=== PATIENT | female | born 1950 | race Caucasian/White ===

== ENCOUNTER → 2016-07-22 | Outpatient (CLI) | payer BC ==
--- NOTE | 2016-07-22 11:08 | ECHOS ---
DATE OF SERVICE: 07/22/2016 AGE: 65Y SEX: F HT: 65 WT: 190 lbs. Protocol [place]: X Others: Stress Echo Stage: II Dur. of Exercise: 5 minutes *Heart Rate Blood Pressure *Rest: 73 Rest: 124/69 * *Max. Achieved: 130 Maximum BP: 186/60 85% PMHR: 133 100% PMHR: 157 *METS: 6 INDICATIONS: Chest pain. MEDICATIONS: Baseline EKG shows sinus rhythm, normal axis, normal intervals. Patient exercised on [place] protocol for a total of 5 minutes achieving 6 METs, 83% of predicted maximal heart rate without chest pain. The patient had occasional PVCs both at rest and during exercise and there was nondiagnostic ST segment depression noted. Baseline echo shows normal left ventricular size, mild LV dysfunction with an ejection fraction of 45% with mild mid anterior wall hypokinesis. Postexercise, I do not see any exercise-induced wall motion abnormalities and the hypokinetic segment remains hypokinetic. CONCLUSION: 1. Poor exercise tolerance. 2. Ventricular ectopy at rest and during exercise. 3. Nondiagnostic EKG changes. 4. Abnormal stress echocardiogram with resting wall motion abnormality as described above.
== END | disposition home or self-care (01) ==
LOC: RADNMMAIN 09:43
PROVIDERS: ATTEND Family Medicine
DX: R94.39 Abnormal result of other cardiovascular function study (principal); R07.9 Chest pain, unspecified
CPT/HCPCS: 93017; 93350

== ENCOUNTER → 2017-09-30 | Outpatient (CLI) | payer MEDICARE ==
--- NOTE | 2017-09-30 11:18 | ECHOF ---
Referral Reason:Angina I20.9 MEASUREMENTS -------- HEIGHT: 165.1 cm WEIGHT: 77.1 kg BP: RVIDd: 2.7 cm (< 3.3) IVSd: 1.3 cm (0.6 - 1.1) LVIDd: 4.0 cm (3.9 - 5.3) LVPWd: 1.1 cm (0.6 - 1.1) IVSs: 1.5 cm LVIDs: 2.9 cm LVPWs: 1.5 cm LA Diam: 3.8 cm (2.7 - 3.8) Ao Diam: 3.5 cm (2.0 - 3.7) AV Cusp: 2.1 cm (1.5 - 2.6) LA Diam: 3.9 cm (2.7 - 3.8) MV EXCURSION: 15.965 mm (> 18.000) MV EF SLOPE: 87 mm/s (70 - 150) EPSS: 0.3 cm MV E Alvin: 0.84 m/s MV DecT: 239 ms MV A Alvin: 0.90 m/s MV E/A Ratio: 0.93 RAP: 5.00 mmHg RVSP: 30.70 mmHg FINDINGS -------- Sinus rhythm. This was a technically good study. The left ventricular size is normal. There is borderline concentric left ventricular hypertrophy. Overall left ventricular systolic function is low-normal with, an EF between 50 - 55 %. The right ventricle is normal in size. The left atrial size is normal. The right atrial size is normal. The aortic valve is trileaflet, and appears structurally normal. No aortic stenosis or regurgitation. Mild mitral annular calcification present. Mild mitral regurgitation is present. Mild tricuspid regurgitation present. There is no evidence of pulmonary hypertension. The right v entricular systolic pressure, as measured by Doppler, is 30.70mmHg. There is no pulmonic regurgitation present. The aortic root size is normal. There is no pericardial effusion. CONCLUSIONS -------- 1. The left ventricular size is normal. 2. There is borderline concentric left ventricular hypertrophy. 3. Overall left ventricular systolic function is low-normal with, an EF between 50 - 55 %. 4. The aortic valve is trileaflet, and appears structurally normal. No aortic stenosis or regurgitati on. 5. Mild mitral annular calcification present. 6. Mild mitral regurgitation is present. 7. Mild tricuspid regurgitation present. 8. There is no evidence of pulmonary hypertension. 9. The right ventricular systolic pressure, as measured by Doppler, is 30.70mmHg. 10. There is no pulmonic regurgitation present. 11. The aortic root size is normal. 12. There is no pericardial effusion. CUP TRIMMING MACHINE OPERATOR: Snehal Ochoa RDCS
--- NOTE | 2017-09-30 11:36 | P.STRESS ---
- Stress Test Note Stress Test Results/Findings: Exam Performed: Exam Date: Reason for Exam: Height: 0 in Weight: 0 g Protocol: Stage: Duration of Exercise: Resting Heart Rate: Resting Blood Pressure: Maximum Achieved Heart Rate: Maximum Achieved Blood Pressure: 85% PMHR: 100% PMHR: METS: Technologist Comment: Stress Test Results/Findings: Baseline heart rate 65 beats a minute Baseline blood pressure 119/70 mmHg Patient exercised on a [place] protocol for 7 minutes achieving a peak heart rate of 128 beats a minute. Normal blood pressure response to exercise. She complained of shortness of breath with exercise There was no ECG evidence for ischemia No arrhythmias noted Baseline 2-D echo images were normal without any segmental wall motion abnormalities At peak exercise there was excellent augmentation of overall LV contractility without development of any wall motion abnormalities @Recovery regional global LV systolic function remained normal Impression No ECG or echocardiographic evidence for ischemia Average exercise capacity
--- NOTE | 2017-10-04 14:14 | ECHOS ---
- Stress Test Note Stress Test Results/Findings: Exam Performed: Stress Echo Exam Date: 09/30/17 Reason for Exam: Chest Pain Height: 65 in Weight: 170 lbs Protocol: [place] Stage: 3 Duration of Exercise: 7:00 Resting Heart Rate: 65 Resting Blood Pressure: 119/70 Maximum Achieved Heart Rate: 128 Maximum Achieved Blood Pressure: 175/79 85% PMHR: 133 100% PMHR: 156 METS: 7.7 Technologist Comment: Stress Test Results/Findings: Baseline heart rate 65 beats a minute Baseline blood pressure 119/70 mmHg Patient exercised on a [place] protocol for 7 minutes achieving a peak heart rate of 128 beats a minute. Normal blood pressure response to exercise. She complained of shortness of breath with exercise There was no ECG evidence for ischemia No arrhythmias noted Baseline 2-D echo images were normal without any segmental wall motion abnormalities At peak exercise there was excellent augmentation of overall LV contractility without development of any wall motion abnormalities @Recovery regional global LV systolic function remained normal Impression No ECG or echocardiographic evidence for ischemia Average exercise capacity MTDD
== END ==
LOC: RADNMMAIN 09:28
PROVIDERS: ATTEND Family Medicine
DX: I08.1 Rheumatic disorders of both mitral and tricuspid valves (principal); I20.9 Angina pectoris, unspecified
CPT/HCPCS: 93306; 93351

== ENCOUNTER → 2017-11-11 | Outpatient (CLI) | payer MEDICARE | END | disposition home or self-care (01) | LOC: CPPFTMAIN 12:31 | PROVIDERS: ATTEND Family Medicine | DX: J68.3 Other acute and subacute respiratory conditions due to chemicals, gases, fumes and vapors (principal) | CPT/HCPCS: 94060; 94726; 94729 ==

== ENCOUNTER → 2018-01-20 | Outpatient (CLI) | payer MEDICARE ==
--- NOTE | 2018-01-20 12:45 | XR ---
EXAMINATION TYPE: XR chest 2V DATE OF EXAM: 01/20/2018 COMPARISON: Prior chest x-ray 08/02/2011 HISTORY: Cough and shortness of breath TECHNIQUE: Frontal and lateral views of the chest are obtained. FINDINGS: There is no focal air space opacity, pleural effusion, or pneumothorax seen. The cardiac silhouette size is within normal limits. There is a spinal curvature. The osseous structures are int act. IMPRESSION: No acute cardiopulmonary process.
== END | disposition home or self-care (01) ==
LOC: RADXRMAIN 10:55
PROVIDERS: ATTEND Family Medicine
DX: R05 Cough (principal); R06.02 Shortness of breath
CPT/HCPCS: 71046

== ENCOUNTER → 2018-09-12 | Outpatient (CLI) | payer MEDICARE ==
--- NOTE | 2018-09-12 15:04 | US ---
EXAMINATION TYPE: US kidneys/renal and bladder DATE OF EXAM: 09/12/2018 COMPARISON: NONE CLINICAL HISTORY: N39.0 Urinary tract infection site not specified. Urinary tract infection. EXAM MEASUREMENTS: Right Kidney: 9.9 x 5.6 x 4.1 cm Left Kidney: 10.5 x 5.4 x 6.1 cm Post Void Residual Volume: Not performed Right Kidney: Echogenic focus with shadowing seen medially measurin.9 x 1.8 x 1.3 cm. Minimal rig ht-sided hydronephrosis Left Kidney: Triangular shape. Echogenic focus with shadowing seen inferiorly measurin.8 x 0.7 x 0.5 cm. Bladder: Appears anechoic. Bilateral Jets seen: Yes No suspicious renal mass is seen. Cortical medullary differentiation is maintained. Bilateral urinary bladder jets are seen. Urinary bladder is anechoic. IMPRESSION: Minimal right hydronephrosis and 1.9 cm right renal calculus near the renal pelvis. Nonobstructing le ft renal calculus is also noted.
== END | disposition home or self-care (01) ==
LOC: RADUSWWP 14:15
PROVIDERS: ATTEND Family Medicine
DX: N13.2 Hydronephrosis with renal and ureteral calculous obstruction (principal)
CPT/HCPCS: 76770

== ENCOUNTER → 2018-10-12 | Outpatient (CLI) | payer MEDICARE ==
--- NOTE | 2018-10-12 15:50 | XR ---
Abdomen HISTORY: Calculus of kidney Frontal view of the abdomen submitted on 2 images No comparisons There is a calcification in the right upper quadrant at the T12-L1 interspace level, paraspinal locat ion measuring approximately 19 mm. Calcifications are noted in the pelvis which may represent phlebol iths on the left. Degenerative disc changes visualized spine. Retained fecal be present throughout th e distribution of the colon. Lung bases are clear. No pneumoperitoneum or bowel obstruction. 2 to 3 m m calcification present in the left paraspinal location may be within the left kidney. IMPRESSION: Calcification right upper quadrant may be within the right kidney or renal pelvis. Possib le left-sided nephrolithiasis.
== END | disposition home or self-care (01) ==
LOC: RADXRMAIN 12:31
PROVIDERS: ATTEND Urology
DX: N20.0 Calculus of kidney (principal)
CPT/HCPCS: 74018

== ENCOUNTER → 2018-10-25 | Outpatient (CLI) | payer MEDICARE ==
[2018-10-25 10:44] LABS: Basophils # (A) 0.1 k/uL (0-0.2); Basophils % (A) 1 %; Eosinophils # (A) 0.4 k/uL (0-0.7); Eosinophils % (A) 10 %; HCT 39.5 % (34.0-46.0); HGB 12.7 gm/dL (11.4-16.0); Lymphocytes # (A) 1.8 k/uL (1.0-4.8); Lymphocytes % (A) 43 %; MCH 30.9 pg (25.0-35.0); MCHC 32.1 g/dL (31.0-37.0); MCV 96.2 fL (80.0-100.0); Monocytes # (A) 0.2 k/uL (0-1.0); Monocytes % (A) 5 %; Neutrophils # (A) 1.6 k/uL (1.3-7.7); Neutrophils % (A) 36 %; Platelet Count 226 k/uL (150-450); RDW 12.3 % (11.5-15.5); WBC 4.3 k/uL (3.8-10.6)
[2018-10-25 11:00] LABS: Calcium 9.9 mg/dL (8.4-10.2); Potassium 4.7 mmol/L (3.5-5.1)
== END | disposition home or self-care (01) ==
LOC: LABPAT 09:12
PROVIDERS: ATTEND Urology
DX: Z01.812 Encounter for preprocedural laboratory examination (principal); Z01.810 Encounter for preprocedural cardiovascular examination; N20.1 Calculus of ureter; R31.1 Benign essential microscopic hematuria; Z79.899 Other long term (current) drug therapy; R53.83 Other fatigue
CPT/HCPCS: 80048; 85025; 87086; 93005

== ENCOUNTER → 2019-01-01 | Outpatient (CLI) | payer MEDICARE ==
--- NOTE | 2019-01-01 13:51 | XR ---
KUB HISTORY: N 20.0, R 93.4 Frontal KUB and 2 images correlated prior exam 11/07/2018 There is a gas-distended stomach present. Large amount of retained fecal debris present within the co demetrio. Overlying gas may obscure underlying detail. Degenerative disc changes are present in the visual ized lumbar spine. There is a slight levoscoliosis. Possible phleboliths in the left hemipelvis. 1 to 2 mm calcification suspected over the left kidney. IMPRESSION: Difficult to exclude nephrolithiasis. Correlate for fecal stasis. Distended stomach.
--- NOTE | 2019-01-01 17:43 | US ---
EXAMINATION TYPE: US kidneys/renal and bladder DATE OF EXAM: 01/01/2019 COMPARISON: 09/12/2018 CLINICAL HISTORY: 68-year-old female R93.4, N20.0. Pt states lithotripsy right side, F/U to previous TECHNIQUE: Multiple sonographic images of the kidneys and bladder are obtained. FINDINGS: EXAM MEASUREMENTS: Right Kidney: 9.9 x 3.6 x 4.7 cm Left Kidney: 9.6 x 4.7 x 4.1 cm Right Kidney: Appeared wnl Left Kidney: No evidence of hydro, lower pole calculus as seen on previous = 5mm in size Bladder: wnl Bilateral Jets seen: Yes There is no evidence for hydronephrosis at this point in time. No nephrolithiasis is seen. No jesus s are identified. The urinary bladder is anechoic. Bilateral ureteral jets are seen. IMPRESSION: 1. No hydronephrosis. The previously seen central calculus in the right kidney is no longer identifie d. 2. Stable 5 mm nonobstructive left renal calculus.
== END | disposition home or self-care (01) ==
LOC: RADUSWWP 12:37
PROVIDERS: ATTEND Urology
DX: N20.0 Calculus of kidney (principal); K31.89 Other diseases of stomach and duodenum
CPT/HCPCS: 74018; 76770

== ENCOUNTER → 2019-03-29 | Outpatient (CLI) | payer MEDICARE ==
--- NOTE | 2019-03-30 07:18 | BD ---
EXAMINATION TYPE: Axial Bone Density DATE OF EXAM: 03/29/2019 COMPARISON: 2016 CLINICAL HISTORY: Z 12.31 Height: 5 FT 4 1/2 Weight: 168 FRAX RISK QUESTIONS: Family History (Parent hip fracture): YES History of Fracture in Adulthood: YES Secondary Osteoporosis: RISK FACTORS HISTORY OF: Family History of Osteoporosis: YES Active: YES Postmenopausal woman: AGE 53 Take estrogen and/or progesterone medications: TOOK HRT FOR APPROX 5 YEARS NO LONGER TAKES MEDICATIONS: Thyroid Medications: YES Which medication: LEVOTHYROXINE How Long: FOR A VERY LONG TIME Additional Medications: Additional History: LEVOTHYROXINE, OXYBUTYNIN, PROPRANOLOL, MONTELUKAST, RAMÍREZ EXAM MEASUREMENTS: Bone mineral densitometry was performed using the [employer]. Bone mineral density as measured about the Lumbar spine is: ----- L1-L4(G/cm2): 1.058 T Score Values are as follows: ----- L2: -2.2 ----- L3: -1.3 ----- L4: 0.5 ----- L1-L4: -1.0 Bone mineral density has: INCREASED 11.4 % since study of: 2016 Bone mineral density about the R hip (g/cm2): 0.892 Bone mineral density about the L hip (g/cm2): 0.911 T Score values are as follows: -----R Neck: -1.1 -----L Neck: -0.9 -----R Total: -0.3 -----L Total: -0.6 Bone mineral density has: INCREASED 3.5 % since study of: 2016 IMPRESSION: Osteopenia (T Score between -2.5 and -1). There is slightly increased risk of fracture and the patient may be considered for treatment. Re-Screen 2-5 years. NOTE: T-SCORE=SD OF THE YOUNG ADULT MEAN.
--- NOTE | 2019-03-30 11:08 | MM ---
Reason for exam: screening (asymptomatic). Last mammogram was performed 3 years and 1 month ago. History: Patient is postmenopausal. Family history of breast cancer in maternal aunt at age 50. Took hormonal contraceptives for 3 years beginning at age 22. Took estrogen for 4 years 2 months. Physical Findings: A clinical breast exam by your physician is recommended on an annual basis and results should be correlated with mammographic findings. MG Screening Mammo w CAD Bilateral CC and MLO view(s) were taken. Prior study comparison: March 12, 2016, bilateral MG screening mammo w CAD. August 16, 2013, bilateral digital screening mammo w/CAD. There are scattered fibroglandular densities. No suspicious abnormality. No significant changes when compared with prior studies. ASSESSMENT: Negative, BI-RAD 1 RECOMMENDATION: Routine screening mammogram of both breasts in 1 year.
== END ==
LOC: RADMAMWWP 15:14
PROVIDERS: ATTEND Family Medicine
DX: Z12.31 Encounter for screening mammogram for malignant neoplasm of breast (principal); M85.80 Other specified disorders of bone density and structure, unspecified site
CPT/HCPCS: 77067; 77080

== ENCOUNTER → 2019-05-11 | Outpatient (CLI) | payer MEDICARE ==
--- NOTE | 2019-05-11 08:59 | US ---
EXAMINATION TYPE: US bladder DATE OF EXAM: 05/11/2019 COMPARISON: Ultrasound kidneys and bladder January 01, 2019 CLINICAL HISTORY: N20.0 Kidney stones, R10.83 Renal colic. Patient states sometimes she uses the bath room constantly and sometimes she can't go. Hx frequent UTI's. EXAM MEASUREMENTS: Post Void Residual Volume: 438.6 mL Patient tried to void x 2. Patient states she was only able to go a little. Color Doppler performed to assess ureteral jets. Bilateral Jets seen Normal Post Void Residual (less than 50ml): ABNORMAL Bladder is satisfactorily distended without intraluminal mass or wall thickening. Patient has signifi cant residual urine after 2 attempts of voiding, calculated volume of over 400 cc. IMPRESSION: Abnormal post void residual.
--- NOTE | 2019-05-11 09:26 | US ---
EXAMINATION TYPE: US abdomen complete DATE OF EXAM: 05/11/2019 COMPARISON: CLINICAL HISTORY: N20.0 Kidney stones, R10.83 Renal colic. Hx renal stones. Frequent UTI's. EXAM MEASUREMENTS: Liver Length: 15.4 cm Gallbladder Wall: 0.2 cm CBD: 0.6 cm Spleen: 8.5 cm Right Kidney: 9.6 x 5.1 x 3.8 cm Left Kidney: 9.8 x 4.4 x 4.9 cm Limited due to overlying bowel gas Pancreas: body and tail obscured by bowel gas Liver: wnl Gallbladder: wnl Evidence for sonographic Le's sign: neg CBD: wnl Spleen: wnl Right Kidney: medial anechoic lesion seen at hilum - 1.0 x 1.0 cm Left Kidney: Medial anechoic lesion seen at hilum - 1.1 x 1.5 cm Upper IVC: wnl Abd Aorta: Proximal and Mid portion obscured by overlying bowel gas. Renal lesions favor small simple thin-walled cysts. Some asymmetric cortical thinning right kidney no favio. The visualized liver is homogenous. The intrahepatic portion of the IVC and visualized abdominal aor ta are within normal limits. There is no evidence of cholelithiasis. Common bile duct is unremarkab le. The visualized portions of the pancreas are homogenous. The spleen is unremarkable. Kidneys ar e symmetric and free of hydronephrosis. No renal lesions are seen. IMPRESSION: No shadowing renal calculi or hydronephrosis seen bilaterally on current study
== END | disposition home or self-care (01) ==
LOC: RADUSWWP 07:59
PROVIDERS: ATTEND Family Medicine
DX: N20.0 Calculus of kidney (principal); R82.998 Other abnormal findings in urine
CPT/HCPCS: 76700; 76857

== ENCOUNTER → 2019-07-23 | Outpatient (CLI) | payer MEDICARE ==
--- NOTE | 2019-07-23 15:31 | CT ---
EXAMINATION TYPE: CT brain wo/w con DATE OF EXAM: 07/23/2019 COMPARISON: 10/21/2014 HISTORY: 68-year-old female with headache and dizziness TECHNIQUE: Examination was done in axial plane before and after administration of 100 mL Isovue 300 intravenous contrast. Coronal and sagittal reconstructions performed. CT DLP: 2131 mGycm Automated exposure control for dose reduction was used. FINDINGS: There is no evidence of acute intracranial hemorrhage, acute ischemic changes, mass, mass-effect, or extra-axial fluid collection. There is no effacement of cerebral sulci or basal subarachnoid cister ns. There is no hydrocephalus. There is no midline shift. Berg-white matter distinction is preserv ed. No enhancing intracranial lesions. Venous sinuses are patent. Rightward nasal septal deviation. Paranasal sinuses and mastoid air cells well pneumatized. Orbits an d globes are intact. IMPRESSION: No acute intracranial abnormality seen. No enhancing intracranial lesions.
== END | disposition home or self-care (01) ==
LOC: RADCTMAIN 13:12
PROVIDERS: ATTEND Family Medicine
DX: R51 Headache (principal)
CPT/HCPCS: 70470; Q9967

== ENCOUNTER → 2020-06-17 | Outpatient (CLI) | payer MEDICARE ==
--- NOTE | 2020-06-20 13:18 | MM ---
Reason for exam: screening (asymptomatic). Last mammogram was performed 1 year and 3 months ago. History: Patient is postmenopausal. Family history of breast cancer in maternal aunt at age 50. Took hormonal contraceptives for 3 years beginning at age 22. Took estrogen for 4 years 2 months. Physical Findings: A clinical breast exam by your physician is recommended on an annual basis and results should be correlated with mammographic findings. MG Screening Mammo w CAD Bilateral CC and MLO view(s) were taken. Prior study comparison: March 29, 2019, bilateral MG screening mammo w CAD. March 12, 2016, bilateral MG screening mammo w CAD. There are scattered fibroglandular densities. Focal asymmetry with irregular margins. This finding is changed when compared with previous exams. ASSESSMENT: Incomplete: need additional imaging evaluation, BI-RAD 0 RECOMMENDATION: Special view mammogram of the right breast. If lesion persists on supplemental views, image directed ultrasound is recommended. [facility] will attempt to contact patient to return for supplemental views and ultrasound if indicated.
== END | disposition home or self-care (01) ==
LOC: RADMAMWWP 14:44
PROVIDERS: ATTEND Family Medicine
DX: Z12.31 Encounter for screening mammogram for malignant neoplasm of breast (principal)
CPT/HCPCS: 77067

== ENCOUNTER → 2020-06-25 | Outpatient (CLI) | payer MEDICARE ==
--- NOTE | 2020-06-25 10:46 | MM ---
Reason for exam: additional evaluation requested from abnormal screening. Last mammogram was performed less than 1 month ago. History: Patient is postmenopausal. Family history of breast cancer in maternal aunt at age 50. Took hormonal contraceptives for 3 years beginning at age 22. Took estrogen for 4 years 2 months. Physical Findings: Nurse did not find any significant physical abnormalities on exam. MG Work Up Mamm w CAD RT Spot compression CC, spot compression MLO, and LM view(s) were taken of the right breast. Prior study comparison: June 17, 2020, bilateral MG screening mammo w CAD. March 29, 2019, bilateral MG screening mammo w CAD. There are scattered fibroglandular densities. The central focal asymmetry appears to disperse. Precautionary 6 month follow up given the appearance on the MLO screening. These results were verbally communicated with the patient and result sheet given to the patient on 06/25/20. ASSESSMENT: Probably benign, BI-RAD 3 RECOMMENDATION: Follow-up diagnostic mammogram of the right breast in 6 months.
== END | disposition home or self-care (01) ==
LOC: RADMAMWWP 09:33
PROVIDERS: ATTEND Family Medicine
DX: R92.8 Other abnormal and inconclusive findings on diagnostic imaging of breast (principal)
CPT/HCPCS: 77065

== ENCOUNTER → 2020-11-25 | Outpatient (CLI) | payer MEDICARE ==
--- NOTE | 2020-11-25 17:08 | XR ---
EXAMINATION TYPE: XR lumbosacral spine min 4V DATE OF EXAM: 11/25/2020 CLINICAL HISTORY: Lower back pain, extremity pain. No known injury. TECHNIQUE: Frontal, lateral, and oblique images of the lumbar spine are obtained. COMPARISON: None FINDINGS: There are 5 lumbar type vertebral bodies identified. There is levocurvature of the lumbar spine. There is multilevel facet arthropathy, worst at L4-L5 and L5-S1 on the right. No evidence of s pondylolysis or spondylolisthesis. Vertebral body heights are normal. Mild diffuse degenerative spurr ing of the endplates. A 8 mm ovoid calcification over the left renal shadow is seen. IMPRESSION: 1. Levocurvature of the lumbar spine. 2. Degenerative disc disease and facet arthropathy as above. 3. 8mm calcification overlying the left renal shadow likely nephrolithiasis.
[2020-11-25 19:40] LABS: Basophils # (A) 0.04 X 10*3/uL (0.00-0.10); Basophils % (A) 0.8 %; Eosinophils # (A) 0.32 X 10*3/uL (0.04-0.35); Eosinophils % (A) 6.6 %; HCT 37.6 % (37.2-46.3); HGB 12.4 g/dL (12.0-15.0); Lymphocytes # (A) 2.08 X 10*3/uL (0.90-5.00); Lymphocytes % (A) 43.2 %; MCV 97.2 fL (80.0-97.0); Mean Platelet Volume 10.8 fL (9.5-12.2); Monocytes # (A) 0.39 X 10*3/uL (0.20-1.00); Monocytes % (A) 8.1 %; Neutrophils # (A) 1.99 X 10*3/uL (1.80-7.70); Neutrophils % (A) 41.3 %; Platelet Count 245 X 10*3/uL (140-440); RBC 3.87 X 10*6/uL (4.10-5.20); RDW 12.1 % (11.5-14.5); WBC 4.82 X 10*3/uL (4.50-10.00)
[2020-11-25 20:59] LABS: Erythrocyte Sedimentation Rate 35 mm/Hr (0-30)
[2020-11-25 21:14] LABS: Cyclic Citrull Pep IgG Unit <0.5 U/mL; Cyclic Citrullinated Pep IgG NEGATIVE (NEGATIVE)
[2020-11-25 21:37] LABS: Protein, Total 6.9 g/dL (6.2-8.2)
[2020-11-25 21:46] LABS: African American GFR (CKD) 87.8 (60.0-200.0); Albumin/Globulin Ratio 1.38 (1.60-3.17); BUN/Creat Ratio 17.5 Ratio (12.00-20.00); C Reactive Protein 0.5 mg/dL (0.0-0.8); Calcium 9.3 mg/dL (8.7-10.3); Chol/HDL Ratio 3.17; Globulin 2.9 g/dL (1.6-3.3); Non-African American GFR(CKD) 75.8 (60.0-200.0); Potassium 4.1 mmol/L (3.5-5.5); Total Bilirubin 0.6 mg/dL (0.3-1.2); Total Protein 6.9 g/dL (6.2-8.2)
== END | disposition home or self-care (01) ==
LOC: LABWHC1 11:17
PROVIDERS: ATTEND Family Medicine
DX: M70.61 Trochanteric bursitis, right hip (principal); M51.37 Other intervertebral disc degeneration, lumbosacral region; M51.36 Other intervertebral disc degeneration, lumbar region; M46.96 Unspecified inflammatory spondylopathy, lumbar region; M46.97 Unspecified inflammatory spondylopathy, lumbosacral region; E78.5 Hyperlipidemia, unspecified; I10 Essential (primary) hypertension; E03.9 Hypothyroidism, unspecified; F90.9 Attention-deficit hyperactivity disorder, unspecified type
CPT/HCPCS: 36415; 72110; 80053; 80061; 82550; 82607; 84165; 84439; 84443; 84481; 84550; 85025; 85652; 86038; 86039; 86140; 86200; 86334; 86618

== ENCOUNTER → 2020-12-24 | Outpatient (CLI) | payer MEDICARE ==
--- NOTE | 2020-12-24 12:25 | MM ---
Reason for exam: follow-up at short interval from prior study. Last mammogram was performed 6 months ago. History: Patient is postmenopausal. Family history of breast cancer in maternal aunt at age 50. Took hormonal contraceptives for 3 years beginning at age 22. Took estrogen for 4 years 2 months. Physical Findings: Nurse did not find any significant physical abnormalities on exam. MG Diagnostic Mammo RT w CAD CC and MLO view(s) were taken of the right breast. Prior study comparison: June 25, 2020, right breast MG work up mamm w CAD RT. June 17, 2020, bilateral MG screening mammo w CAD. There are scattered fibroglandular densities. No significant new findings when compared with previous films. These results were verbally communicated with the patient and result sheet given to the patient on 12/24/20. ASSESSMENT: Benign, BI-RAD 2 RECOMMENDATION: Return to routine screening mammogram schedule for both breasts. Back on schedule.
== END | disposition home or self-care (01) ==
LOC: RADMAMWWP 09:36
PROVIDERS: ATTEND Family Medicine
DX: Z12.31 Encounter for screening mammogram for malignant neoplasm of breast (principal); Z80.3 Family history of malignant neoplasm of breast
CPT/HCPCS: 77065

== ENCOUNTER → 2021-05-11 | Outpatient (CLI) | payer MEDICARE ==
[2021-05-11 10:22] LABS: Basophils # (A) 0.1 k/uL (0-0.2); Basophils % (A) 1 %; Eosinophils # (A) 0.3 k/uL (0-0.7); Eosinophils % (A) 8 %; HCT 40.5 % (34.0-46.0); HGB 13.1 gm/dL (11.4-16.0); Lymphocytes # (A) 1.5 k/uL (1.0-4.8); Lymphocytes % (A) 40 %; MCH 32.8 pg (25.0-35.0); MCHC 32.3 g/dL (31.0-37.0); MCV 101.6 fL (80.0-100.0); Mean Platelet Volume 7.2; Monocytes # (A) 0.2 k/uL (0-1.0); Monocytes % (A) 6 %; Neutrophils # (A) 1.6 k/uL (1.3-7.7); Neutrophils % (A) 42 %; Platelet Count 232 k/uL (150-450); RBC 3.99 m/uL (3.80-5.40); WBC 3.8 k/uL (3.8-10.6)
[2021-05-11 10:47] LABS: Potassium 4.1 mmol/L (3.5-5.1)
== END | disposition home or self-care (01) ==
LOC: LABWHC1 09:38
PROVIDERS: ATTEND Obstetrics & Gynecology
DX: N81.4 Uterovaginal prolapse, unspecified (principal); N81.6 Rectocele; Z01.818 Encounter for other preprocedural examination
CPT/HCPCS: 36415; 80051; 82565; 82947; 84520; 85025; 87086; 93005

== ENCOUNTER 2021-05-19 07:59 | Day surgery (SDC) | payer MEDICARE ==
--- NOTE | 2021-05-07 09:58 | HP ---
HISTORY AND PHYSICAL REASON FOR ADMISSION: Surgery on Wednesday, May 19, 2021 HISTORY OF PRESENT ILLNESS: This is a 70-year-old female who presents with increasing perineal bulge from Dr. Mcgowan's office. He is menopausal, not taking hormone replacement therapy, denies vaginal bleeding. She is reporting increased pressure and bulge of the perineal body, having to splint digitally to thoroughly evacuate the rectum. She is wishing surgical repair. The option of pessary has been discussed in detail and declined. PAST MEDICAL HISTORY: Significant for allergic rhinitis, asthma, attention deficit disorder, and GERD, history of kidney stones and kidney infection, hyperlipidemia, hypertension, hypothyroidism. PAST SURGICAL HISTORY: History of biceps tendonitis repaired in the past, kidney stones removed. CURRENT MEDICATIONS: Baby aspirin daily, Kayli 180 mg extended tab daily, fish oil daily, levothyroxine 112 mcg daily, manganese gluconate once daily, Nitrostat 0.4 mg sublingually p.r.n., propranolol 60 mg daily, Solifenacin 5 mg tablet daily, 650 mg daily, Ventolin HFA 90 mcg aerosol inhaler 1-2 puffs every 6 hours as needed, vitamin B complex tab daily, vitamin D3 daily. ALLERGIES: INCLUDE NONSTEROIDAL MEDICATIONS, PENICILLIN, AND ROFECOXIB, NO REACTIONS LISTED. OBSTETRIC HISTORY: Significant for normal spontaneous vaginal deliveries x3, unremarkable. SOCIAL HISTORY: Social alcohol, no tobacco or drug use. Patient is single. EXAM: Patient is 5 foot 4.5 inches, 169 pounds, BMI 28, pulse 71, blood pressure 132/80. HEENT exam reveals no thyromegaly, good dentition, no lymphadenopathy. CHEST: Clear to auscultation in all patel anteriorly and posteriorly. CARDIAC exam reveals regular rate and rhythm with no murmur, click, or rub. BREASTS are bilaterally symmetric to inspection with no skin changes. No nipple discharge axillary adenopathy or discernible lesions or masses. ABDOMEN: Soft and nontender, active bowel sounds, no hepatosplenomegaly. External GENITALIA are normal for age, very mildly atrophic. There is a grade 3-4 uterine prolapse, a grade 4 cystocele, grade 3 rectocele. Pap smear is up to date and normal. RECTAL exam reveals good sphincter tone, no hemorrhoids, no rectal masses, FIT negative stool. No other lymphadenopathy is noted. The patient is alert and oriented x3 with good judgment and appropriate affect. IMPRESSION: Grade 3-4 uterine prolapse, grade 4 cystocele, grade 3 rectocele, wishing surgical palliation. PLAN: We will proceed with vaginal hysterectomy, possible bilateral salpingo-oophorectomy, anterior and posterior colporrhaphy. The risks, benefits, alternatives have all been discussed. Pessary use is declined. Risk of anesthesia, aspiration, nerve damage, or even have all been reviewed. The ACOG pamphlet on pelvic organ prolapse has been given to the patient and she has reviewed thoroughly. I believe she understands our discussion with no reservation. She does consent to oophorectomy only if the ovaries are abnormal to inspection. MMODL / IJN: [id number] /
[2021-05-12 14:29] VITALS: BMI 28.3
[~2021-05-19 07:59] MED LIST: DEXAMETHASONE SOD PHOSPHATE 4 MG/ML 1 ML VIAL IV ONE; HYDROmorphone 0.5 MG/0.5 ML SYRINGE IVP PRN; ONDANSETRON 4 MG/2 ML VIAL IVP ONE
[2021-05-19] MEDS: LACTATED RINGERS 1,000 ML IV SCH ×2 (09:03→17:07)
[2021-05-19] MEDS ORDERED: MIDAZOLAM 2 MG/2 ML VIAL IVP ONE (09:35)
[2021-05-19] MEDS ORDERED: fentaNYL (PF) 50 MCG/ML 2 ML AMP IVP ONE (09:37)
[2021-05-19] MEDS ORDERED: LIDOCAINE 1% INJ 10MG/ML (20 ML MDV) ONE (10:00)
[2021-05-19] MEDS ORDERED: GLYCOPYRROLATE 0.2 MG/ML 2 ML VIAL ONE (10:00)
[2021-05-19] MEDS ORDERED: NEOSTIGMINE 1 MG/ML 10 ML VIAL ONE (10:00)
[2021-05-19] MEDS ORDERED: ROCURONIUM 10 MG/ML (5 ML VIAL) IV ONE (10:00)
[2021-05-19] MEDS ORDERED: ONDANSETRON 4 MG/2 ML VIAL ONE (10:00)
[2021-05-19] MEDS ORDERED: PROPOFOL 10 MG/ML 20 ML VIAL IV ONE (10:00)
[2021-05-19] MEDS ORDERED: diphenhydrAMINE 50 MG/ML 1 ML VIAL ONE (10:00)
[2021-05-19] MEDS ORDERED: SUCCINYLCHOLINE CHLORIDE 100 MG/5 ML SYR IV ONE (10:00)
[2021-05-19] MEDS ORDERED: fentaNYL (PF) 50 MCG/ML 2 ML AMP ONE (10:00)
[2021-05-19] MEDS ORDERED: MORPHINE SULFATE (PF) 0.3 MG/0.3 ML SYR ONE (10:00)
--- NOTE | 2021-05-19 10:11 | P.ANPRN ---
Procedure Note - Anesthesia - Epidural/Spinal Spinal Time Out Performed: Yes Date of Procedure: 05/19/21 Procedure Start Time: 09:35 Procedure Stop Time: 09:41 Location of Patient: PreOp Indication: Acute Post-Operative Pain, Requested by Surgeon (cheryl) Sedation Type: Sedate with meaningful contact maintained Preparation: Sterile Prep Position: Sitting Catheter: None Needle Guage: 25 Narrative: L4-5 identified. sterile protocol. local. 25g spinal with introducer. +CSF No heme Fentanyl 25mcg and Duramorph 300mcg. Patient tolerated procedure well. Blood Aspirated: No Pain Paresthesia on Injection Noted: No Events: Uneventful and Well Tolerated
[2021-05-19] MEDS ORDERED: VASOPRESSIN 20 UNIT/ML 1 ML VIAL SQ ONE (10:22)
[2021-05-19] MEDS ORDERED: LACTATED RINGERS 1,000 ML IV ONE (10:35)
[2021-05-19] MEDS ORDERED: BACITRACIN ZINC 500 UNIT/GM OINT 28.4 GM TUBE TOPICAL ONE (10:41)
[2021-05-19] MEDS ORDERED: KETOROLAC 30 MG/ML 1 ML VIAL IVP PRN (11:45)
[2021-05-19] MEDS ORDERED: SIMETHICONE 80 MG CHEWABLE PO PRN (11:45)
[2021-05-19] MEDS ORDERED: ONDANSETRON 4 MG/2 ML VIAL IVP PRN (11:45)
[2021-05-19] MEDS ORDERED: ZOLPIDEM 5 MG TAB PO PRN (11:45)
[2021-05-19] MEDS ORDERED: METOCLOPRAMIDE 5 MG/ML 2 ML VIAL IVP PRN (11:45)
[2021-05-19] MEDS ORDERED: diphenhydrAMINE 50 MG/ML 1 ML VIAL IVP PRN (11:45)
--- NOTE | 2021-05-19 11:45 | P.OP ---
Date of Procedure: 05/19/21 Preoperative Diagnosis: Symptomatic uterine prolapse, cystocele and rectocele Postoperative Diagnosis: Same, normal-appearing atrophic ovaries bilaterally Procedure(s) Performed: Gen. hysterectomy, anterior and posterior colporrhaphy's Anesthesia: GETA Surgeon: Monie Ignacio [employer] Program Coordinator #1: Kimberli Fragoso Estimated Blood Loss (ml): 75 IV fluids (ml): 700 Urine output (ml): 250 Pathology: other (Cervix and uterus) Condition: stable Disposition: PACU Operative Findings: Normal-appearing, atrophic ovaries bilaterally Description of Procedure: Patient is brought to the [facility] and suite where a general anesthetic is administered without difficulty after administration of a spinal with Duramorph in the preoperative area. Antibiotics are given. The patient is placed in the dorsal lithotomy position. The cervix, vagina, perineal bodies and lower abdomen are all prepped and draped in the usual sterile fashion. The appropriate timeout is performed to assure proper patient and procedural identification. Weighted speculum was placed into the vagina. Bladder is drained for approximately 250 mL of clear yellow urine. Anterior lip of the cervix is grasped with a double-tooth tenaculum. Cervix is injected circumferentially with a dilute Pitressin solution. A [place] blade scalpel is used to incise the mucosa circumferentially with a V position at 6:00. Sponge rolled finger is used to sweep the mucosa from the underlying fascial plane. The peritoneum is entered at 6:00, suture tied with 2-0 Vicryl and held with a hemostat. The large billed speculum is then placed into the peritoneal cavity. Again, at all times the bladder swept well from the operative field to avoid bladder and/or ureteral injury. The right uterosacral ligament is identified, clamped cut and suture ligated. It is held with a hemostat. The same procedure is carried out contralaterally. Mucosa is swept from the operative field, uterine vasculature is identified. It is clamped cut and suture ligated. Please note that 0 Vicryl sutures used for the entire hysterectomy portion of the procedure. 2 additional pedicles are taken superior to the vessels. Peritoneum is entered at 12:00. The uterus is then "walked out" posteriorly. Stella clamps are used across the final pedicles and the cervix and uterus are removed and sent to pathology. These pedicles are tied with 0 Vicryl suture in a Karol stitch, flashed, and retied for excellent hemostasis. The ovaries are then visualized, they are high in the peritoneal cavity, appear atrophic and within normal limits, and therefore are left in situ per the patient's wishes. All pedicles are clean and dry. The peritoneum is then brought around in a pursestring fashion with the previously placed 2-0 Vicryl suture. The uterosacral cardinal ligaments are now brought across to incorporate the opposite ligament as well as vaginal mucosa. 2 additional [id number] sutures of 0 Vicryl are used to close the vaginal cough. The remaining superior portion is held with Allis clamps and the anterior colporrhaphy is started. The anterior mucosa is injected in the midline with the same dilute Pitressin solution to approximately 1.5 cm inferior to the urethra. Metzenbaum scissors are used to underlying this mucosa in the midline. The mucosa is opened and held laterally with Allis clamps. A sponge rolled finger is used to sweep the underlying fascial plane from the overlying mucosal edge. Razo catheter is placed. Urine is clear. 2-0 Vicryl sutures used in an interrupted fashion to bring the fascial edges together in the midline thereby reducing the cystocele. The redundant tissue was trimmed with Metzenbaum scissors and a 2-0 Vicryl sutures used in a running fashion to bring the mucosal edges together to close the defect. Hemostasis remained excellent. At this time a triangular portion of tissue is removed from the perineal body. The posterior vaginal mucosa is injected in the midline with the same dilute Pitressin solution. Metzenbaum scissors are used to undermine the mucosa and the mucosa is opened to the apex of the defect. The edges are held in a fanlike fashion with Allis clamps. A sponge rolled finger is used to sweep the fascial plane from the underlying mucosal tissue. 2-0 Vicryl is used in the midline again to bring the fascial edges together thereby completely reducing the rectocele. The redundant tissue was trimmed with Metzenbaum scissors, 2-0 Vicryl is used in a running locking fashion to close the posterior vaginal wall and the repair is completed and an episiotomy-like fashion. Deep rectal exam reveals no foreign bodies, no defects, no issues as the mucosa is firm and smooth. The vagina is packed with one-inch iodophor gauze. Razo catheter is again noted to be draining clear urine. Total estimate a blood loss 75 mL, fluid replacement 700 mL's. Patient is brought back to recovery room in very good condition with stable vital signs including blood pressure 104/53, pulse 61, 98% O2 saturation.
[2021-05-19] MEDS: SENNOSIDES-DOCUSATE SODIUM 1 EACH TAB PO SCH (21:30)
--- NOTE | 2021-05-20 07:19 | P.PN ---
Progress Note - Text Progress Note Date: 05/20/21 Ms. Wilkinson is a 70 -year-old female had a history of hysterectomy under general anesthesia, and spinal analgesia withFentanyl 25mcg and Duramorph 300mcg for postop pain. Today patient is comfortable sitting in her bed. Today patient rated her pain level 2 out of 10 in severity. Denied any fever, drowsiness, confusion. Denied any weakness, tingling sensation in her lower extremities. Denied any bowel or bladder problems. Moving all extremities without any difficulty. Able to walk without any difficulties. Patient complaining of nausea, itching overnight. Currently denied any itching. Vitals: Hemodynamically stable Continue oral pain medication as per primary team.
--- NOTE | 2021-05-20 08:13 | P.PN ---
Subjective Progress Note Date: 05/20/21 Principal diagnosis: Postoperative day #1 Nausea and emesis through the night. Better this morning. Still no meaningful by mouth intake. Patient feels she is likely still recovering from the anesthetic. Had significant issues previously with general anesthetic for biceps surgery. Negative flatus. No complaint of pain. Objective - Vital Signs Vital signs: Vital Signs Temp 97.9 F 05/19/21 23:49 Pulse 69 05/19/21 23:49 Resp 18 05/19/21 23:49 BP 116/72 05/19/21 23:49 Pulse Ox 100 05/19/21 23:49 Intake & Output 05/19/21 05/20/21 05/20/21 18:59 06:59 18:59 Intake Total 1450 Output Total 775 750 Balance 675 -750 Weight 78.4 kg Intake: IV 1450 Output: Urine 550 750 Uretheral (Razo) 750 Emesis 150 Estimated Blood Loss 75 - Constitutional General appearance: Present: average body habitus, cooperative - EENT Eyes: Present: PERRLA ENT: Present: hearing grossly normal - Neck Neck: Present: normal ROM - Respiratory Respiratory: bilateral: CTA - Cardiovascular Rhythm: regular - Gastrointestinal Gastrointestinal Comment(s): Abdomen soft, no pain, no rebound or guarding. No CVA tenderness. Bowel sounds present, but hypoactive. - Genitourinary Genitourinary Comment(s): Perineal body clean and dry. Razo catheter and vaginal packing removed. No vaginal bleeding. - Neurologic Neurologic: Present: CNII-XII intact - Musculoskeletal Musculoskeletal: Present: gait normal, strength equal bilaterally - Psychiatric Psychiatric: Present: A&O x's 3, appropriate affect, intact judgment & insight Assessment and Plan Assessment: Postoperative day #1. Residual nausea and emesis noted. Plan: Slow dietary advancement. May shower. Increase activity. Measure voided and postvoid residual. Await spontaneous passage of flatus. Possible discharge home later today, versus tomorrow, pending clinical progress. Time with Patient: Less than 30
[2021-05-20] MEDS: ACETAMINOPHEN TAB 325 MG TAB PO PRN ×2 (09:15→20:07)
[2021-05-20] MEDS: SENNOSIDES-DOCUSATE SODIUM 1 EACH TAB PO SCH ×2 (09:38→23:07)
[2021-05-20] MEDS: LACTATED RINGERS 1,000 ML IV SCH (12:13)
[2021-05-21] MEDS: ACETAMINOPHEN TAB 325 MG TAB PO PRN ×2 (04:01→09:55)
[2021-05-21 04:27] VITALS: BP 119/71; PULSE 79; RESP 18; TEMP 98
[2021-05-21] MEDS ORDERED: LEVOTHYROXINE 112 MCG TAB PO SCH (06:00)
[2021-05-21] MEDS ORDERED: PROPRANOLOL 20 MG TAB PO SCH (06:00)
--- NOTE | 2021-05-21 08:00 | P.DS ---
Providers Date of admission: 05/19/21 Expected date of discharge: 05/21/21 Attending physician: Monie Ignacio Primary care physician: [facility] Course: This is a 70-year-old white female who presented with increasingly symptomatic vaginal prolapse, cystocele and rectocele. She elected for surgical repair. She underwent anterior colporrhaphy, posterior colporrhaphy, and vaginal hysterectomy 2 days ago. Surgery was unremarkable, ovaries appeared within normal limits to inspection and therefore were left in situ per her wishes. Please see my dictated history and physical as well as operative notes for details. Razo catheter was removed yesterday morning, patient was able to void but still had large postvoid residuals. For that reason Razo catheter was reinserted through the night. It has been discontinued this morning. Vaginal packing is removed. There is no vaginal bleeding. Patient is passing flatus and tolerating regular food. She complains of no pain. Appetite is good. Voiding trial will recommence this morning. Plan is for discharge home later today. If post void residuals remain in the 500s. She will be instructed to self cath. She will use [id number] Advil or Aleve, or Motrin as needed for pain. I reminded her no intercourse, tampons or douching. No heavy lifting. No driving for 2 weeks. No vacuuming. She will call with any issues with urination, significant vaginal bleeding, with any pain not alleviated by [id number] products, or indeed with any concerns. Assessment: Postoperative day #2, Patient Condition at Discharge: Good Plan - Discharge Summary New Discharge Prescriptions: No Action Montelukast Sodium [Singulair] 10 mg PO HS Solifenacin Succinate 5 mg PO QAM Propranolol HCl 60 mg PO QAM Levothyroxine Sodium 112 mcg PO MOTUWETHFR Nitroglycerin Sl Tabs [Nitrostat] 0.4 mg SUBLINGUAL Q5M PRN PRN Reason: Chest Pain Fexofenadine HCl [Kayli Allergy] 180 mg PO HS Albuterol Inhaler [Ventolin Hfa Inhaler] 1 puff INHALATION DIRECTED PRN PRN Reason: Asthma Cholecalciferol [Vitamin D3 (125 Mcg = 5000 Iu)] 125 mcg PO DAILY Aspirin 81 mg PO DAILY Relief Factor 1 tab PO TID Levothyroxine Sodium 56 mcg PO SUSA Cyanocobalamin (Vitamin B-12) [Vitamin B12] 5,000 mcg PO ZHOU Cranberry Fruit Extract [Theracran] 650 mg PO HS Discharge Medication List Albuterol Inhaler [Ventolin Hfa Inhaler] 1 puff INHALATION DIRECTED PRN 05/12/21 [History] Aspirin 81 mg PO DAILY 05/12/21 [History] Cholecalciferol [Vitamin D3 (125 Mcg = 5000 Iu)] 125 mcg PO DAILY 05/12/21 [History] Cranberry Fruit Extract [Theracran] 650 mg PO HS 05/12/21 [History] Cyanocobalamin (Vitamin B-12) [Vitamin B12] 5,000 mcg PO ZHOU 05/12/21 [History] Fexofenadine HCl [Kayli Allergy] 180 mg PO HS 05/12/21 [History] Levothyroxine Sodium 56 mcg PO SUSA 05/12/21 [History] Levothyroxine Sodium 112 mcg PO MOTUWETHFR 05/12/21 [History] Montelukast Sodium [Singulair] 10 mg PO HS 05/12/21 [History] Nitroglycerin Sl Tabs [Nitrostat] 0.4 mg SUBLINGUAL Q5M PRN 05/12/21 [History] Propranolol HCl 60 mg PO QAM 05/12/21 [History] Relief Factor 1 tab PO TID 05/12/21 [History] Solifenacin Succinate 5 mg PO QAM 05/12/21 [History] Follow up Appointment(s)/Referral(s): Monie Ignacio MD [STAFF PHYSICIAN] - 2 Weeks Discharge Disposition: HOME SELF-CARE
[2021-05-21] MEDS: SENNOSIDES-DOCUSATE SODIUM 1 EACH TAB PO SCH ×2 (09:56→10:26)
== END 2021-05-21 11:50 | disposition home or self-care (01) ==
LOC: OR 07:59 → 4FBP 11:48 → OR 05-21 11:50
PROVIDERS: ATTEND Obstetrics & Gynecology
DX: N81.4 Uterovaginal prolapse, unspecified (principal); Z20.822 Contact with and (suspected) exposure to COVID-19
CPT/HCPCS: 57260; 86900; 86901; 88305; 86850; 87635; J2250; J1200; J1100; J2710; J2765; J0690; J2405; J2001; J2274; J3010; J0330; J2704

== ENCOUNTER → 2021-06-30 | Outpatient (CLI) | payer MEDICARE ==
--- NOTE | 2021-06-30 14:58 | XR ---
EXAMINATION TYPE: XR KUB DATE OF EXAM: 06/30/2021 COMPARISON: 01/01/2019 HISTORY: Left-sided renal calculus TECHNIQUE: One view abdominal series FINDINGS: The osseous structures are intact. The bowel gas pattern is nonspecific. There is a left upper quadr ant calcification measuring 8.7 mm. Diffuse osteopenia and degenerative change of the spine and arthr opathy of the hips. Prominent gastric air bubble. IMPRESSION: 1. 8.7 mm left upper quadrant calcification likely renal. 2. Prominent gastric bubble correlate for gastroparesis or gastric outlet obstruction. Similar findin gs were seen in 2019.
== END | disposition home or self-care (01) ==
LOC: RADXRMAIN 14:00
PROVIDERS: ATTEND Urology
DX: N20.0 Calculus of kidney (principal)
CPT/HCPCS: 74018

== ENCOUNTER → 2021-08-18 | Outpatient (CLI) | payer MEDICARE ==
--- NOTE | 2021-08-20 10:56 | MM ---
Reason for exam: screening (asymptomatic). Last mammogram was performed 8 months ago. History: Patient is postmenopausal. Family history of breast cancer in maternal aunt at age 50. Took hormonal contraceptives for 3 years beginning at age 22. Took estrogen for 4 years 2 months. Physical Findings: A clinical breast exam by your physician is recommended on an annual basis and results should be correlated with mammographic findings. MG 3D Screening Mammo W/Cad Bilateral CC and MLO view(s) were taken. Prior study comparison: December 24, 2020, right breast MG diagnostic mammo RT w CAD. June 25, 2020, right breast MG work up mamm w CAD RT. There are scattered fibroglandular densities. No significant changes when compared with prior studies. ASSESSMENT: Benign, BI-RAD 2 RECOMMENDATION: Routine screening mammogram of both breasts in 1 year.
== END | disposition home or self-care (01) ==
LOC: RADMAMWWP 13:18
PROVIDERS: ATTEND Family Medicine
DX: Z12.31 Encounter for screening mammogram for malignant neoplasm of breast (principal)
CPT/HCPCS: 77063; 77067

== ENCOUNTER → 2021-09-07 | Outpatient (CLI) | payer MEDICARE ==
[2021-09-07 18:34] LABS: Basophils # (A) 0.04 X 10*3/uL (0.00-0.10); Eosinophils # (A) 0.26 X 10*3/uL (0.04-0.35); Eosinophils % (A) 6.3 %; HCT 39.3 % (37.2-46.3); HGB 12.7 g/dL (12.0-15.0); Immature Grans, Automated 0.2 %; Lymphocytes # (A) 1.71 X 10*3/uL (0.90-5.00); Lymphocytes % (A) 41.4 %; MCH 31.9 pg (27.0-32.0); MCHC 32.3 g/dL (32.0-37.0); MCV 98.7 fL (80.0-97.0); Mean Platelet Volume 10.2 fL (9.5-12.2); Monocytes # (A) 0.33 X 10*3/uL (0.20-1.00); NRBC Per 100 WBC 0 /100 WBCS (0.0-0.0); Neutrophils # (A) 1.78 X 10*3/uL (1.80-7.70); Neutrophils % (A) 43.1 %; Platelet Count 185 X 10*3/uL (140-440); RBC 3.98 X 10*6/uL (4.10-5.20); RDW 12.1 % (11.5-14.5); WBC 4.13 X 10*3/uL (4.50-10.00)
[2021-09-08 01:12] LABS: African American GFR (CKD) 78.1 (60.0-200.0); BUN/Creat Ratio 18.62 Ratio (12.00-20.00); Blood Urea Nitrogen 16.4 mg/dL (9.0-27.0); Calcium 9.7 mg/dL (8.7-10.3); Carbon Dioxide 25.2 mmol/L (20.0-27.5); Non-African American GFR(CKD) 67.4 (60.0-200.0); Potassium 4.1 mmol/L (3.5-5.5)
== END | disposition home or self-care (01) ==
LOC: LABPAT 12:15
PROVIDERS: ATTEND Urology
DX: Z01.812 Encounter for preprocedural laboratory examination (principal); N20.0 Calculus of kidney
CPT/HCPCS: 80048; 85025

== ENCOUNTER 2021-09-17 05:53 | Day surgery (SDC) | payer MEDICARE ==
[2021-09-15 14:26] VITALS: BMI 28.3
--- NOTE | 2021-09-15 20:19 | P.GSHP ---
History of Present Illness H&P Date: 09/15/21 Chief Complaint: Chronic UTI The patient is a 70-year-old white female with a persistent group B strep UTI. Her symptoms include dysuria, urgency, and vague left flank discomfort. Her symptoms are improved when taking Keflex. She underwent right ureteroscopy with holmium laser lithotripsy in October 2018 to remove a 19 mm right renal pelvic calculus. The calculus was composed of carbonate apatite (50%) and calcium oxalate monohydrate (35%). KUB x-ray reveals a 9 mm left renal calculus, which may be secondarily infected given the persistent UTI. - Constitutional Constitutional: Denies chills, Denies fever - Cardiovascular Cardiovascular: Denies chest pain - Respiratory Respiratory: Denies dyspnea - Genitourinary (Female) Genitourinary: Denies dysuria, Denies hematuria Past Medical History Past Medical History: Asthma, GERD/Reflux, Hypertension, Osteoarthritis (OA), Thyroid Disorder Additional Past Medical History / Comment(s): "memory is starting to go", sinus problems, lightheaded sometimes, kidney stones, hip pain, bursitis History of Any Multi-Drug Resistant Organisms: None Reported Past Surgical History: Hysterectomy, Orthopedic Surgery Additional Past Surgical History / Comment(s): kidney stone surg., right bicep tendon cut Past Anesthesia/Blood Transfusion Reactions: Postoperative Nausea & Vomiting (PONV) Additional Past Anesthesia/Blood Transfusion Reaction / Comment(s): slow to wake up @times Smoking Status: Never smoker - Past Family History Mother Family Medical History: No Reported History Medications and Allergies Home Medications Medication Instructions Recorded Confirmed Type Albuterol Inhaler [Ventolin Hfa 1 puff INHALATION DIRECTED PRN 05/12/21 09/15/21 History Inhaler] Aspirin 81 mg PO DAILY 05/12/21 09/15/21 History Cholecalciferol [Vitamin D3 (125 125 mcg PO DAILY 05/12/21 09/15/21 History Mcg = 5000 Iu)] Cranberry Fruit Extract [Theracran] 650 mg PO HS 05/12/21 09/15/21 History Cyanocobalamin (Vitamin B-12) 5,000 mcg PO ZHOU 05/12/21 09/15/21 History [Vitamin B12] Fexofenadine HCl [Kayli Allergy] 180 mg PO HS 05/12/21 09/15/21 History Levothyroxine Sodium 56 mcg PO SUSA 05/12/21 09/15/21 History Levothyroxine Sodium 112 mcg PO MOTUWETHFR 05/12/21 09/15/21 History Montelukast Sodium [Singulair] 10 mg PO HS 05/12/21 09/15/21 History Nitroglycerin Sl Tabs [Nitrostat] 0.4 mg SUBLINGUAL Q5M PRN 05/12/21 09/15/21 History Propranolol HCl 60 mg PO QAM 05/12/21 09/15/21 History Relief Factor 1 tab PO BID 05/12/21 09/15/21 History Solifenacin Succinate 5 mg PO QAM 05/12/21 09/15/21 History Allergies Allergy/AdvReac Type Severity Reaction Status Date / Time NSAIDS (Non-Steroidal Allergy Unknown Verified 09/15/21 14:01 Anti-Inflamma Penicillins Allergy Rash/Hives Verified 09/15/21 14:01 morphine AdvReac Itching Verified 09/15/21 14:02 Surgical - Exam - General well developed, well nourished, no distress - Respiratory normal respiratory effort - Abdomen Abdomen: soft, non tender, no guarding, no rigid, no rebound - Psychiatric oriented to time, oriented to person, oriented to place, speech is normal, memory intact Assessment and Plan (1) Calculus of kidney Status: Acute Code(s): N20.0 - CALCULUS OF KIDNEY SNOMED Code(s): 68711503 Plan: Cystoscopy, left retrograde pyelogram, left ureteroscopy with Holmium laser lithotripsy and possible stone basketing, left ureteral stent insertion. The procedure then reviewed in detail with the patient. The rationale for the procedure is to remove a calculus which may be secondarily infected and the cause of her chronic infections. She is aware of potential risks, which include anesthesia, bleeding, infection, inability to successfully remove the calculus, ureteral injury, and persistent infection.
[2021-09-17] MEDS ORDERED: MIDAZOLAM 2 MG/2 ML VIAL IV PRN (06:19)
[2021-09-17] MEDS ORDERED: DEXAMETHASONE SOD PHOSPHATE 4 MG/ML 1 ML VIAL IV ONE (06:19)
[2021-09-17] MEDS ORDERED: LIDOCAINE 1% (10MG/ML) FOR IV START INTRADERMA PRN (06:19)
[2021-09-17] MEDS ORDERED: ONDANSETRON 4 MG/2 ML VIAL IVP ONE (06:19)
[2021-09-17] MEDS ORDERED: HYDROmorphone 0.5 MG/0.5 ML SYRINGE IVP PRN (06:19)
[2021-09-17] MEDS ORDERED: LACTATED RINGERS 1,000 ML IV SCH (06:19)
--- NOTE | 2021-09-17 06:23 | XR ---
EXAMINATION TYPE: XR KUB DATE OF EXAM: 09/17/2021 COMPARISON: 06/30/2021 HISTORY: Left renal calculus TECHNIQUE: 2 views supine FINDINGS: There is no sign of intestinal obstruction or pneumoperitoneum. Fecal pattern is normal. Ki dneys are obscured by fecal material. There is no evidence of abdominal mass. There is a mild lumbar levoscoliosis. IMPRESSION: Nonacute abdomen. Potential calculus obscured by gas and fecal material.
[2021-09-17] MEDS ORDERED: LACTATED RINGERS 1,000 ML IV ONE (06:44)
[2021-09-17] MEDS ORDERED: PROPOFOL 10 MG/ML 20 ML VIAL IV ONE (07:30)
[2021-09-17] MEDS ORDERED: LIDOCAINE 2% INJ 20 MG/ML (2 ML VIAL) ONE (07:30)
[2021-09-17] MEDS ORDERED: SUCCINYLCHOLINE CHLORIDE 100 MG/5 ML SYR IV ONE (07:30)
[2021-09-17] MEDS ORDERED: MIDAZOLAM 2 MG/2 ML VIAL ONE (07:30)
[2021-09-17] MEDS ORDERED: fentaNYL (PF) 50 MCG/ML 2 ML AMP ONE (07:30)
[2021-09-17] MEDS ORDERED: IOPAMIDOL-370 50ML BTL MISCELLANE ONE (07:35)
[2021-09-17 09:14] VITALS: RESP 16; TEMP 96.9
--- NOTE | 2021-09-17 09:14 | P.OP ---
Date of Procedure: 09/17/21 Preoperative Diagnosis: Left renal calculus Postoperative Diagnosis: Same Procedure(s) Performed: Cystoscopy, left retrograde pyelogram, left ureteroscopy with Holmium laser lithotripsy, left ureteral stent insertion Anesthesia: LEOLAA Surgeon: Dante Tillman Estimated Blood Loss (ml): 0 IV fluids (ml): 700 Pathology: none sent Condition: stable Disposition: PACU Indications for Procedure: The patient is a 70-year-old white female with a persistent group B strep UTI. Her symptoms include dysuria, urgency, and vague left flank discomfort. Her symptoms are improved when taking Keflex. She underwent right ureteroscopy with holmium laser lithotripsy in October 2018 to remove a 19 mm right renal pelvic calculus. The calculus was composed of carbonate apatite (50%) and calcium oxalate monohydrate (35%). KUB x-ray reveals a 9 mm left renal calculus, which may be secondarily infected given the persistent UTI. Operative Findings: Complete dusting of left renal pelvic calculus. Description of Procedure: The patient was taken to the operating room and placed in the dorsolithotomy position, with legs supported in Altaf stirrups. The external genitalia was prepped and draped sterilely. The 30 lens was used to introduce the 21-[place] cystoscopic sheath through the urethra and into the bladder under direct vision. The bladder was examined in its entirety. Both ureteral orifices were normal anatomic location and configuration, and clear urine effluxed from both. No tumors or foreign bodies were seen. Using a 10-[place] cone-tipped catheter, a left retrograde pyelogram was p erformed. The ureter appeared normal. The calculus was seen as an irregularity within the left renal pelvis. A 0.038 inch Glidewire was passed through the cystoscope. The ureteral orifice was cannulated, and the Glidewire was advanced up to the renal pelvis. The cystoscope was removed, and a 12-[place] ureteral access catheter obturator over the wire. This was removed, and the [employer] flexible ureteroscope was passed over the wire. However, it could not be passed through the ureteral orifice. Therefore, a 12/14-[place] ureteral access catheter was passed over the wire, up to the proximal ureter. The flexible ureteroscope was then passed through the ureteral access catheter sheath and advanced up to the left renal pelvis under direct vision. The calculus was identified within the renal pelvis. The 272 micron Holmium laser probe was passed through the ureteroscope, and lithotripsy was performed utilizing a dusting mode. The stone was dusted completely, leaving no residual calculus fragments exceeding the size of the laser fiber tip. The ureteroscope was withdrawn. Pullout ureteroscopy showed no evidence of ureteral injury. The Glidewire was passed up to the left renal pelvis. After removing the ureteral access catheter sheath, the Glidewire was backloaded into the cystoscope, which was passed into the bladder. A 24 cm, 6-[place] silicone double-J ureteral stent was placed over the wire. Proper stent positioning was verified fluoroscopically and endoscopically.. The bladder was emptied and the cystoscope removed. The patient tolerated the procedure well and was taken to the recovery room in stable condition. EVELYNE PASCUAL Report: Procedure Acuity: Elective Stone Size and Location: 9 mm, left renal pelvis Ureteral Dilation: No Ureteral Access Sheath Used: Yes Stone Sent for Analysis: No All Stones/Fragments Were Removed with a Basket: No Complications: No Preoperative Antibiotics Given: Yes Stent Placed: Yes If Stent Placed, Was String Left Attached: No If Stent Placed, When is it to be Removed: 1 week Discharge Medications: None
--- NOTE | 2021-09-17 09:29 | FL ---
EXAMINATION TYPE: FL urography retrograde DATE OF EXAM: 09/17/2021 COMPARISON: NONE HISTORY: Fluoroscopy time. Fluoroscopy was provided to the referring clinician.
[2021-09-17 10:13] VITALS: BP 156/85; PULSE 55
== END 2021-09-17 10:45 | disposition home or self-care (01) ==
LOC: OR 05:53
PROVIDERS: ATTEND Urology
DX: N20.0 Calculus of kidney (principal); I10 Essential (primary) hypertension; J45.909 Unspecified asthma, uncomplicated; K21.9 Gastro-esophageal reflux disease without esophagitis; M19.90 Unspecified osteoarthritis, unspecified site; Z79.82 Long term (current) use of aspirin; Z87.442 Personal history of urinary calculi; Z88.0 Allergy status to penicillin; Z88.5 Allergy status to narcotic agent; Z88.6 Allergy status to analgesic agent; E07.9 Disorder of thyroid, unspecified; Z86.73 Personal history of transient ischemic attack (TIA), and cerebral infarction without residual deficits; Z79.899 Other long term (current) drug therapy
CPT/HCPCS: 52356; 74420; 74018; C1758; C1894; C1769; J2250; J0690; J3010; J0330; J2704; Q9967; J2001

== ENCOUNTER → 2021-09-26 | Outpatient (CLI) | payer MEDICARE ==
[2021-09-26 22:50] LABS: Basophils # (A) 0.04 X 10*3/uL (0.00-0.10); Basophils % (A) 0.9 %; Eosinophils # (A) 0.26 X 10*3/uL (0.04-0.35); Eosinophils % (A) 5.8 %; HGB 11.9 g/dL (12.0-15.0); Immature Grans, Automated 0.2 %; Lymphocytes # (A) 1.88 X 10*3/uL (0.90-5.00); MCHC 33.1 g/dL (32.0-37.0); MCV 96.8 fL (80.0-97.0); Mean Platelet Volume 10.7 fL (9.5-12.2); Monocytes # (A) 0.39 X 10*3/uL (0.20-1.00); Monocytes % (A) 8.7 %; NRBC Per 100 WBC 0 /100 WBCS (0.0-0.0); Neutrophils % (A) 42.4 %; Platelet Count 204 X 10*3/uL (140-440); RBC 3.72 X 10*6/uL (4.10-5.20); RDW 11.9 % (11.5-14.5); WBC 4.48 X 10*3/uL (4.50-10.00)
[2021-09-26 23:16] LABS: Chol/HDL Ratio 3.49 Ratio; LDL Cholesterol,Calculated 122.5 mg/dL (0.0-131.0)
[2021-09-26 23:21] LABS: ALT 13 U/L (8-44); AST 20 U/L (13-35); African American GFR (CKD) 74.5 (60.0-200.0); Albumin 3.8 g/dL (3.8-4.9); Albumin/Globulin Ratio 1.25 (1.60-3.17); Alkaline Phosphatase 51 U/L (41-126); BUN/Creat Ratio 16.27 Ratio (12.00-20.00); Blood Urea Nitrogen 14.9 mg/dL (9.0-27.0); Calcium 9.3 mg/dL (8.7-10.3); Carbon Dioxide 23.8 mmol/L (20.0-27.5); Chloride 108 mmol/L (96-109); Globulin 3.1 g/dL (1.6-3.3); Glucose 93 mg/dL (70-110); Non-African American GFR(CKD) 64.3 (60.0-200.0); Potassium 3.9 mmol/L (3.5-5.5); Sodium 142 mmol/L (135-145); Total Protein 6.9 g/dL (6.2-8.2)
== END | disposition home or self-care (01) ==
LOC: LABWHC1 10:35
PROVIDERS: ATTEND Family Medicine
DX: N81.9 Female genital prolapse, unspecified (principal); R41.3 Other amnesia; E78.5 Hyperlipidemia, unspecified; E03.9 Hypothyroidism, unspecified
CPT/HCPCS: 36415; 80053; 80061; 82306; 82607; 84439; 84443; 85025

== ENCOUNTER → 2021-10-28 | Outpatient (CLI) | payer MEDICARE ==
--- NOTE | 2021-10-28 10:45 | XR ---
KUB HISTORY: Kidney stones Frontal KUB and 2 images correlated to prior exam dated 09/30/2021 There is a large amount of bowel gas, retained fecal debris possibly obscuring underlying detail. Navi cifications in the left hemipelvis are stable. Bone mineralization is unchanged. Lung bases are clear . IMPRESSION: Nonspecific findings. No significant interval change.
--- NOTE | 2021-10-28 12:54 | US ---
EXAMINATION TYPE: US kidneys/renal and bladder DATE OF EXAM: 10/28/2021 COMPARISON: Abdominal x-ray September 30, 2021 CLINICAL HISTORY: Kidney stones N20.0. hx of stones and kidney infections. EXAM MEASUREMENTS: Right Kidney: 9.2 x 3.2 x 3.6 cm Left Kidney: 10.6 x 5.2 x 3.9 cm Right Kidney: No hydronephrosis or masses seen Left Kidney: No hydronephrosis or masses seen Bladder: anechoic not fully distended. Bilateral Jets seen: Yes There is no evidence for hydronephrosis at this point in time. No shadowing nephrolithiasis is seen. No masses are identified on images saved. The urinary bladder is not greatly distended. Bilateral ureteral jets are seen. IMPRESSION: No hydronephrosis identified bilaterally. No definitive nephrolithiasis.
== END | disposition home or self-care (01) ==
LOC: RADUSWWP 09:38
PROVIDERS: ATTEND Urology
DX: N20.0 Calculus of kidney (principal)
CPT/HCPCS: 74018; 76770

== ENCOUNTER → 2022-02-16 | Outpatient (CLI) | payer MEDICARE ==
[2022-02-16 20:53] LABS: Anion Gap 11.7 mmol/L (10.00-18.00); Carbon Dioxide 26.3 mmol/L (20.0-27.5); Potassium 4.3 mmol/L (3.5-5.5)
== END | disposition home or self-care (01) ==
LOC: LABWHC1 11:33
PROVIDERS: ATTEND Urology
DX: N20.0 Calculus of kidney (principal)
CPT/HCPCS: 36415; 80051

== ENCOUNTER → 2022-09-23 | Outpatient (CLI) | payer MEDICARE ==
--- NOTE | 2022-09-23 17:58 | BD ---
EXAMINATION TYPE: Axial Bone Density DATE OF EXAM: 09/23/2022 CLINICAL HISTORY: 71 years old Female. ICD-10 CODE: N95.1 POSTMENOPAUSAL Height: 64 in Weight: 168 lbs FRAX RISK QUESTIONS: Family History (Parent hip fracture): father hip fx History of Fracture in Adulthood: rt foot age 52; lt foot age 51 RISK FACTORS HISTORY OF: Active: yes Diet low in dairy products/other sources of calcium: yes Postmenopausal woman: age 52; partial hysterectomy age 69 Take estrogen and/or progesterone medications: not now How lon years MEDICATIONS: Thyroid Medications: yes Which medication: Levothyroxine How Lon+ years Additional Medications: vit d, baby aspirin, bladder meds, propranolol, allergy meds, vit b 12, EXAM MEASUREMENTS: Bone mineral densitometry was performed using the [employer] System. Bone mineral density as measured about the Lumbar spine is: ----- L1-L4(G/cm2): 1.089 T Score Values are as follows: ----- L1: -1.5 ----- L2: -1.1 ----- L3: -1.0 ----- L4: 0.0 ----- L1-L4: -0.8 Z Score Values are as follows: ----- L1: -0.2 ----- L2: 0.2 ----- L3: 0.3 ----- L4: 1.3 ----- L1-L4: 0.5 Bone mineral density has: Increased 2.9% since study of: 03/29/2019 Bone mineral density about the R hip (g/cm2): 0.984 Bone mineral density about the L hip (g/cm2): 0.910 T Score values are as follows: -----R Neck: -1.0 -----L Neck: -1.1 -----R Total: -0.2 -----L Total: -0.8 Z Score values are as follows: -----R Neck: 0.4 -----L Neck: 0.4 -----R Total: 1.0 -----L Total: 0.4 Bone mineral density has: Decreased -0.2% since study of: 03/29/2019 FRAX%s: The graph provided illustrates a 21.7% chance for a major osteoporotic fx and a 3.0% chance f or the hips probability for fx in 10 years time. IMPRESSION: Osteopenia (T Score between -2.5 and -1). There is slightly increased risk of fracture and the patient may be considered for treatment. Re-Screen 2-5 years. NOTE: T-SCORE=SD OF THE YOUNG ADULT MEAN.
--- NOTE | 2022-09-24 19:28 | MM ---
Reason for Exam: Screening (asymptomatic). Last mammogram was performed 1 year(s) and 1 month(s) ago. Patient History: Menarche at age 14. First Full-Term at age 25. Hysterectomy at age 69. Postmenopausal. Estrogen for 4 years, 2 months. Hormonal Contraceptives, starting at age 22 for 3 years. Maternal aunt had breast cancer, age 50. Risk Values: Velia 5 year model risk: 1.5%. NCI Lifetime model risk: 4.8%. Prior Study Comparison: 06/25/2020 Right Diagnostic Mammogram, [facility]. 12/24/2020 Right Diagnostic Mammogram, [facility]. 08/18/2021 Bilateral Screening Mammogram, [facility]. Tissue Density: There are scattered fibroglandular densities. Findings: Analyzed By CAD. Central asymmetric density right cc view remains unchanged. There is no suspicious group of microcalcifications or new suspicious mass in either breast. Overall Assessment: Benign, BI-RAD 2 Management: Screening Mammogram of both breasts in 1 year. . Patient should continue monthly self-breast exams. A clinical breast exam by your physician is recommended on an annual basis. This exam should not preclude additional follow-up of suspicious palpable abnormalities. Note on Velia scores and lifetime risk: 1. A Velia score greater than 3% is considered moderate risk. If this is the case, consider specialist referral to assess eligibility for a risk reducing agent. 2. If overall lifetime risk for the development of breast cancer is 20% or higher, the patient may qualify for future screening with alternating mammogram and breast MRI. Electronically signed and approved by: Birgit Willingham M.D. Radiologist
== END | disposition home or self-care (01) ==
LOC: RADBDWWP 12:29
PROVIDERS: ATTEND Family Medicine
DX: Z12.31 Encounter for screening mammogram for malignant neoplasm of breast (principal); M81.0 Age-related osteoporosis without current pathological fracture; M85.89 Other specified disorders of bone density and structure, multiple sites; Z80.3 Family history of malignant neoplasm of breast; Z78.0 Asymptomatic menopausal state
CPT/HCPCS: 77063; 77067; 77080

== ENCOUNTER → 2022-10-04 | Outpatient (CLI) | payer MEDICARE ==
[2022-10-04 15:45] LABS: Basophils # (A) 0.07 X 10*3/uL (0.00-0.10); Basophils % (A) 1.7 %; Eosinophils # (A) 0.41 X 10*3/uL (0.04-0.35); Eosinophils % (A) 9.7 %; HCT 39.6 % (37.2-46.3); HGB 13.2 g/dL (12.0-15.0); Immature Grans, Automated 0.2 %; Lymphocytes # (A) 1.98 X 10*3/uL (0.90-5.00); Lymphocytes % (A) 46.9 %; MCH 32.7 pg (27.0-32.0); MCHC 33.3 g/dL (32.0-37.0); Mean Platelet Volume 10.4 fL (9.5-12.2); Monocytes # (A) 0.31 X 10*3/uL (0.20-1.00); Monocytes % (A) 7.3 %; NRBC Per 100 WBC 0 /100 WBCS (0.0-0.0); Neutrophils # (A) 1.44 X 10*3/uL (1.80-7.70); Neutrophils % (A) 34.2 %; Platelet Count 231 X 10*3/uL (140-440); RBC 4.04 X 10*6/uL (4.10-5.20); RDW 12.1 % (11.5-14.5); WBC 4.22 X 10*3/uL (4.50-10.00)
[2022-10-04 16:20] LABS: ALT 16 U/L (8-44); AST 20 U/L (13-35); African American GFR (CKD) 75.1 (60.0-200.0); Albumin 4.1 g/dL (3.8-4.9); Albumin/Globulin Ratio 1.37 (1.60-3.17); Alkaline Phosphatase 58 U/L (41-126); BUN/Creat Ratio 14.67 Ratio (12.00-20.00); Blood Urea Nitrogen 13.2 mg/dL (9.0-27.0); Calcium 9.5 mg/dL (8.7-10.3); Carbon Dioxide 24.3 mmol/L (20.0-27.5); Chloride 104 mmol/L (96-109); Chol/HDL Ratio 3.03 Ratio; Glucose 84 mg/dL (70-110); Non-African American GFR(CKD) 64.8 (60.0-200.0); Potassium 4.3 mmol/L (3.5-5.5); Sodium 141 mmol/L (135-145); Total Protein 7.1 g/dL (6.2-8.2)
[2022-10-04 16:56] LABS: Vitamin B12 >1800.0 pg/mL (200.0-944.0)
== END | disposition home or self-care (01) ==
LOC: LABWHC1 09:56
PROVIDERS: ATTEND Family Medicine
DX: Z00.01 Encounter for general adult medical examination with abnormal findings (principal); I10 Essential (primary) hypertension; E78.5 Hyperlipidemia, unspecified; E03.9 Hypothyroidism, unspecified; E53.8 Deficiency of other specified B group vitamins; E55.9 Vitamin D deficiency, unspecified
CPT/HCPCS: 36415; 80053; 80061; 82306; 82607; 84439; 84443; 85025

== ENCOUNTER → 2023-04-19 | Outpatient (CLI) | payer MEDICARE | END | disposition home or self-care (01) | LOC: LABWHC1 11:44 | PROVIDERS: ATTEND Family Medicine | DX: I10 Essential (primary) hypertension (principal); E78.5 Hyperlipidemia, unspecified; E03.9 Hypothyroidism, unspecified; D51.9 Vitamin B12 deficiency anemia, unspecified; E55.9 Vitamin D deficiency, unspecified ==

== ENCOUNTER → 2023-11-18 | Outpatient (CLI) | payer MEDICARE ==
--- NOTE | 2023-11-23 13:08 | MM ---
Reason for Exam: Screening (asymptomatic). Last mammogram was performed 1 year(s) and 2 month(s) ago. Patient History: Menarche at age 14. First Full-Term at age 25. Hysterectomy at age 69. Postmenopausal. Estrogen for 4 years, 2 months. Hormonal Contraceptives, starting at age 22 for 3 years. Maternal aunt had breast cancer, age 50. Risk Values: Velia 5 year model risk: 1.6%. NCI Lifetime model risk: 4.3%. Prior Study Comparison: 12/24/2020 Right Diagnostic Mammogram, [facility]. 08/18/2021 Bilateral Screening Mammogram, [facility]. 09/23/2022 Bilateral MG 3D screening mammo w/cad, [facility]. Tissue Density: There are scattered areas of fibroglandular density. Findings: Analyzed By CAD. Right breast: There is no suspicious group of microcalcifications or new suspicious mass. Left breast: There is no suspicious group of microcalcifications or new suspicious mass. Overall Assessment: Negative, BI-RAD 1 Management: Screening Mammogram of both breasts in [address] [facility] will attempt to contact patient to return for supplemental views and ultrasound if indicated. Patient should continue monthly self-breast exams. A clinical breast exam by your physician is recommended on an annual basis. This exam should not preclude additional follow-up of suspicious palpable abnormalities. Note on Velia scores and lifetime risk: 1. A Velia score greater than 3% is considered moderate risk. If this is the case, consider specialist referral to assess eligibility for a risk reducing agent. 2. If overall lifetime risk for the development of breast cancer is 20% or higher, the patient may qualify for future screening with alternating mammogram and breast MRI. Electronically signed and approved by: Nirav Matt DO
== END | disposition home or self-care (01) ==
LOC: RADMAMWWP 10:12
PROVIDERS: ATTEND Family Medicine
DX: Z12.31 Encounter for screening mammogram for malignant neoplasm of breast (principal); Z78.0 Asymptomatic menopausal state; Z80.3 Family history of malignant neoplasm of breast
CPT/HCPCS: 77063; 77067

== ENCOUNTER → 2024-07-18 | Outpatient (CLI) | payer MEDICARE ==
--- NOTE | 2024-07-18 12:33 | MR ---
EXAMINATION TYPE: MR iac wo/w con DATE OF EXAM: 07/18/2024 12:12 PM COMPARISON: None. CLINICAL INDICATION: Female, 73 years old with history of H90.A21 SNSRNRL HEAR LOSS, UNI, R EAR, WITH RSTRCD; PHH, Dizziness, right ear pain, radiating inferiorly. TECHNIQUE: Multi planar, multi sequence imaging was performed through the brain. Specialized thin s equences were obtained through the internal auditory canals. Pre-and post gadolinium sequences were obtained. IV Contrast: 8 mL Gadobutrol FINDINGS: The bone marrow signal is within normal limits. Paranasal sinuses and mastoid air cells: Mild scattered paranasal sinus disease. Visualized orbits: Orbital contents are intact. After administration of gadolinium, no abnormal enhancement is seen. The internal auditory canal sequences demonstrate no significant irregularity. The 7th cranial nerve s, 8 cranial nerves, and cerebellar pontine angles appear unremarkable. After the administration jerzy olinium, no abnormal enhancement is seen within the internal auditory canals. Vascular loop: None. External auditory canal soft tissues are grossly symmetric without organizing fluid collection or thi ckening. IMPRESSION: 1. No evidence of intracranial mass nor acute/subacute CVA. 2. No evidence of internal auditory canal abnormality. [facility], , 07/18/2024 12:31 PM
== END | disposition home or self-care (01) ==
LOC: RADMRIMAIN 11:10
PROVIDERS: ATTEND Otolaryngology
DX: H90.A21 Sensorineural hearing loss, unilateral, right ear, with restricted hearing on the contralateral side (principal)
CPT/HCPCS: 70553; A9585

== ENCOUNTER → 2024-11-06 | Outpatient (CLI) | payer MEDICARE ==
--- NOTE | 2024-11-06 12:08 | XR ---
EXAMINATION TYPE: XR cervical spine comp DATE OF EXAM: 11/06/2024 11:53 AM COMPARISON: CLINICAL INDICATION: Female, 74 years old with history of M50.00 CERVICAL DISC DISORDER WITH MYELOPAT HY, UNS; PHH, pain TECHNIQUE: 5 views FINDINGS: Multilevel moderate facet and uncovertebral joint arthropathy. Degenerative trace grade 1 anterolisth esis C3-C4 and C7-T1. Mild/moderate degenerative disc disease mid and lower cervical spine. Reversal of the normal cervical lordosis. Degenerative change C1 dens articulation. No prevertebral soft tissu e swelling. Normal odontoid view. Left-sided neuroforamen are limited due to the degree of obliquity. Unable to exclude moderate bony neural foraminal narrowing at C3-C4, C4-C5, C5-C6, C6-7, and C7-T1. IMPRESSION: 1. Moderate multilevel spondylotic change. 2. Degenerative grade 1 anterolisthesis C3-C4 and C7-T1. 3. Reversal of the normal cervical lordosis could be positional or due to muscle spasm. 4. There may be moderate bony neuroforaminal narrowing throughout the left side of the cervical spine . [facility], , 11/06/2024 12:06 PM
== END | disposition home or self-care (01) ==
LOC: RADXRMAIN 11:21
PROVIDERS: ATTEND Family Medicine
DX: M50.00 Cervical disc disorder with myelopathy, unspecified cervical region (principal); M43.13 Spondylolisthesis, cervicothoracic region; M47.12 Other spondylosis with myelopathy, cervical region
CPT/HCPCS: 72050

== ENCOUNTER → 2024-12-07 | Outpatient (CLI) | payer MEDICARE ==
--- NOTE | 2024-12-07 11:44 | MM ---
Reason for Exam: Screening (asymptomatic). Last screening mammogram was performed 12 month(s) ago. Patient History: Menarche at age 14. First Full-Term at age 25. Hysterectomy at age 69. Postmenopausal. Estrogen for 4 years, 2 months. Hormonal Contraceptives, starting at age 22 for 3 years. Maternal aunt had breast cancer, age 50. Risk Values: Velia 5 year model risk: 1.6%. NCI Lifetime model risk: 4.1%. Prior Study Comparison: 08/18/2021 Bilateral Screening Mammogram, [facility]. 09/23/2022 Bilateral MG 3D screening mammo w/cad, [facility]. 11/18/2023 Bilateral MG 3D screening mammo w/cad, [facility]. Tissue Density: There are scattered areas of fibroglandular density. Findings: Analyzed By CAD. Right breast: There is no suspicious group of microcalcifications or new suspicious mass. Left breast: There is no suspicious group of microcalcifications or new suspicious mass. Overall Assessment: Negative, BI-RAD 1 Management: Screening Mammogram of both breasts in [address] [facility] will attempt to contact patient to return for supplemental views and ultrasound if indicated. Patient should continue monthly self-breast exams. A clinical breast exam by your physician is recommended on an annual basis. This exam should not preclude additional follow-up of suspicious palpable abnormalities. Note on Velia scores and lifetime risk: 1. A Velia score greater than 3% is considered moderate risk. If this is the case, consider specialist referral to assess eligibility for a risk reducing agent. 2. If overall lifetime risk for the development of breast cancer is 20% or higher, the patient may qualify for future screening with alternating mammogram and breast MRI. [facility], , 12/07/2024 11:41 AM. Electronically signed and approved by: Nirav Matt DO
--- NOTE | 2024-12-07 11:51 | BD ---
EXAMINATION TYPE: Axial Bone Density DATE OF EXAM: 12/07/2024 CLINICAL HISTORY: 74 years old Female. ICD-10 CODE: S82.009S FX OF [place] , Additional History: Height: 65 Weight: 172.2 FRAX RISK QUESTIONS: Alcohol (3 or more units per day): no Family History (Parent hip fracture): yes Glucocorticoids (More than 3mos): no (Ex: prednisone, prednisolone, methylprednisolone, dexamethasone, and hydrocortisone). History of Fracture in Adulthood: yes Secondary Osteoporosis: 1. Type 1 Diabetes: no 2. Hyperthyroidism: no 3. Menopause before 45: no 4. Malnutrition: no 5. Chronic liver disease: no Rheumatoid Arthritis: no Current Tobacco Use: no RISK FACTORS HISTORY OF: Surgery to Spine/Hip(right/left)/Wrist (right/left): no MEDICATIONS: Thyroid Medications: synthroid How Lon + years EXAM MEASUREMENTS: Bone mineral densitometry was performed using the [employer] System. Bone mineral density as measured about the Lumbar spine is: ----- L1-L4(G/cm2): 1.089 T Score Values are as follows: ----- L1: -1.6 ----- L2: -1.9 ----- L3: -0.5 ----- L4: -0.4 ----- L1-L4: -0.8 Z Score Values are as follows: ----- L1: -0.4 ----- L2: -0.6 ----- L3: 0.8 ----- L4: 0.7 ----- L1-L4: 0.5 Bone mineral density has: 0.0 % since study of: 09.23.2022 Bone mineral density about the R hip (g/cm2): 0.957 Bone mineral density about the L hip (g/cm2): 0.932 T Score values are as follows: -----R Neck: -1.1 -----L Neck: -1.3 -----R Total: -0.4 -----L Total: -0.6 Z Score values are as follows: -----R Neck: 0.4 -----L Neck: 0.2 -----R Total: 0.9 -----L Total: 0.7 Bone mineral density has: decreased -0.2 % since study of: 5. FRAX%s: The graph provided illustrates a 23.3% chance for a major osteoporotic fx and a 6.2% chance f or the hips probability for fx in 10 years time. IMPRESSION: Osteopenia (T Score between -2.5 and -1). There is slightly increased risk of fracture and the patient may be considered for treatment. Re-Screen 2-5 years. NOTE: T-SCORE=SD OF THE YOUNG ADULT MEAN. [facility], , 12/07/2024 11:48 AM
== END | disposition home or self-care (01) ==
LOC: RADMAMWWP 10:29
PROVIDERS: ATTEND Family Medicine
DX: Z12.31 Encounter for screening mammogram for malignant neoplasm of breast (principal); S82.0 Fracture of patella; R92.323 Mammographic fibroglandular density, bilateral breasts; M85.89 Other specified disorders of bone density and structure, multiple sites; Z78.0 Asymptomatic menopausal state; Z80.3 Family history of malignant neoplasm of breast; Z92.0 Personal history of contraception; X58.XXXS Exposure to other specified factors, sequela
CPT/HCPCS: 77063; 77067; 77080